=== PATIENT | male | born 1980 | race Caucasian/White ===

== ENCOUNTER 2024-05-06 19:39 | Inpatient (IN) | payer MEDICAID ==
[~2024-05-06] VITALS: Ht 180.3 cm; Wt 80.3 kg
[2024-05-06 21:11] LABS: BASOPHILS % 0.8 % (0.0-2.0); EOSINOPHILS % 1.7 % (0.0-5.0); HEMATOCRIT. 44.2 % (42.0-52.0); MEAN CORPUSCULAR HEMOGLOBIN 32.9 pg (28.0-32.0); MEAN CORPUSCULAR HGB CONC 33.9 g/dL (31.0-37.0); MEAN CORPUSCULAR VOLUME 96.8 fL (80.0-94.0); MEAN PLATELET VOLUME 7.7 fl (7.4-10.4); MONOCYTES % 8.1 % (2.0-8.0); NEUTROPHILS % 63.4 % (40.0-76.0); PLATELET 312 x1000/uL (130-400); RED BLOOD CELL COUNT 4.57 mill/uL (4.7-6.1); RED CELL DISTRIBUTION WIDTH 13.1 % (11.6-14.6); WHITE BLOOD COUNT 8.1 x1000/uL (4.5-11.0)
[2024-05-06 21:17] LABS: CHLORIDE 110 mEq/L (98-107); POTASSIUM 5.1 mEq/L (3.5-5.1); SODIUM 141 mEq/L (136-145)
[2024-05-06 21:18] LABS: CARBON DIOXIDE 28 mEq/L (21-32)
[2024-05-06 21:23] LABS: CREATININE 0.9 mg/dL (0.6-1.3); GLUCOSE 84 mg/dL (70-105); UREA NITROGEN BLOOD 10 mg/dL (9-23)
[2024-05-07] MEDS ORDERED: IPRATROPIUM/ALBUTEROL 0.5-3(2.5)MG/3ML NEB HHN PRN (09:15)
[2024-05-07] MEDS ORDERED: ONDANSETRON HCL 4MG/2ML INJ IV PRN (09:15)
[2024-05-07] MEDS ORDERED: ACETAMINOPHEN 325MG TABLET PO PRN (09:15)
[2024-05-07] MEDS ORDERED: CLONIDINE 0.1MG TABLET PO PRN (09:15)
[2024-05-07 11:46] VITALS: BP 107/73; PULSE 73; RESP 18; TEMP 36.61404; O2SAT 94
[2024-05-07 13:06] VITALS: BP 107/73; PULSE 69; RESP 18; TEMP 36.418
[2024-05-07 16:14] VITALS: BP 112/79; PULSE 74; RESP 18; TEMP 36.89184; O2SAT 95
[2024-05-07 20:00] VITALS: BP 108/72; RESP 18; TEMP 36.50292; O2SAT 97
[2024-05-07] MEDS: DIPHENHYDRAMINE 50MG/ML VIAL IV PRN (20:27)
[2024-05-08] VITALS: BP 109/80; PULSE 64; RESP 18; TEMP 36.55848; O2SAT 98
[2024-05-08 04:00] VITALS: BP 112/79; PULSE 69; RESP 18; TEMP 36.44736; O2SAT 99
[2024-05-08 07:11] LABS: BASOPHILS % 0.8 % (0.0-2.0); EOSINOPHILS % 1.4 % (0.0-5.0); HEMATOCRIT. 46.3 % (42.0-52.0); HEMOGLOBIN. 15.4 g/dL (14.0-18.0); LYMPHOCYTES % 18.6 % (20.0-50.0); MEAN CORPUSCULAR HEMOGLOBIN 32.4 pg (28.0-32.0); MEAN CORPUSCULAR HGB CONC 33.4 g/dL (31.0-37.0); MEAN CORPUSCULAR VOLUME 97.1 fL (80.0-94.0); MEAN PLATELET VOLUME 8.2 fl (7.4-10.4); MONOCYTES % 6.9 % (2.0-8.0); NEUTROPHILS % 72.3 % (40.0-76.0); PLATELET 281 x1000/uL (130-400); RED BLOOD CELL COUNT 4.76 mill/uL (4.7-6.1); RED CELL DISTRIBUTION WIDTH 13.1 % (11.6-14.6); WHITE BLOOD COUNT 9.2 x1000/uL (4.5-11.0)
[2024-05-08 07:31] LABS: CHLORIDE 110 mEq/L (98-107); POTASSIUM 4.3 mEq/L (3.5-5.1); SODIUM 138 mEq/L (136-145)
[2024-05-08 07:32] LABS: CALCIUM 9.4 mg/dL (8.7-10.4); CARBON DIOXIDE 20 mEq/L (21-32)
[2024-05-08 07:37] LABS: CREATININE 0.7 mg/dL (0.6-1.3); GLUCOSE 73 mg/dL (70-105); UREA NITROGEN BLOOD 14 mg/dL (9-23)
[2024-05-08 08:00] VITALS: BP 112/77; PULSE 63; RESP 20; TEMP 37.05852; O2SAT 98
[2024-05-08 12:00] VITALS: BP 113/74; PULSE 74; RESP 20; TEMP 36.55848; O2SAT 97
[2024-05-08 16:00] VITALS: BP 130/82; PULSE 85; RESP 20; TEMP 37.00296; O2SAT 98
[2024-05-08 20:00] VITALS: BP 122/87; PULSE 73; RESP 20; TEMP 36.61404; O2SAT 99
[2024-05-08] MEDS: ACETAMINOPHEN 325MG TABLET PO PRN (20:50)
[2024-05-09] VITALS: BP 146/71; PULSE 75; RESP 20; TEMP 36.61404; O2SAT 97
[2024-05-09 13:31] VITALS: BP 140/87; PULSE 74; TEMP 98.1; O2SAT 98
== END 2024-05-09 15:58 | disposition short-term general hospital (02) | DRG 55 ==
LOC: ER 19:39 → EDBEDREQ 19:51 → 5WST 20:33 → EDBEDREQ 20:38 → EDBEDREQSVC 05-07 04:55 → 7WST 05-07 11:40
PROVIDERS: ADMIT Internal Medicine; ATTEND Internal Medicine
DX: S06.5X0A Traumatic subdural hemorrhage without loss of consciousness, initial encounter (principal); F20.9 Schizophrenia, unspecified; Z20.822 Contact with and (suspected) exposure to COVID-19; S00.12XA Contusion of left eyelid and periocular area, initial encounter; J44.9 Chronic obstructive pulmonary disease, unspecified; W18.39XA Other fall on same level, initial encounter; Y93.89 Activity, other specified; Y92.89 Other specified places as the place of occurrence of the external cause; Y99.8 Other external cause status
CPT/HCPCS: 36415; 80048; 85025; 87426; 93970; 97161; 99285; J1200